=== PATIENT | female | born 1935 | race Caucasian/White ===

== ENCOUNTER → 2016-10-11 | Outpatient (CLI) | payer MEDICARE, OTHER ==
[~2016-10-11] MED LIST: ACLI400A2 INH; CHOL20002 PO; DIAZOXIDE PO; OCCUVITE; OMEG300C PO; OMEP-110 PO; POTA20TA91 PO; TRIA1CAP PO; albuterol mdi
== END | disposition home or self-care (01) ==
LOC: CFH 10:11
PROVIDERS: ATTEND Nurse Practitioner
DX: J43.2 Centrilobular emphysema (principal); J84.10 Pulmonary fibrosis, unspecified; R91.1 Solitary pulmonary nodule; I70.0 Atherosclerosis of aorta; M47.894 Other spondylosis, thoracic region
CPT/HCPCS: 71250

== ENCOUNTER → 2017-10-31 | Outpatient (CLI) | payer MEDICARE, OTHER | END | disposition home or self-care (01) | LOC: CFH 11:09 | PROVIDERS: ATTEND Internal Medicine | DX: J43.2 Centrilobular emphysema (principal); J84.10 Pulmonary fibrosis, unspecified; J98.11 Atelectasis; R91.1 Solitary pulmonary nodule | CPT/HCPCS: 71250 ==

== ENCOUNTER → 2018-07-12 | Outpatient (CLI) | payer MEDICARE, OTHER ==
[~2018-07-12] MED LIST changes: -CHOL20002 PO; +CHOL200052 PO
== END | disposition home or self-care (01) ==
LOC: CFH 09:24
PROVIDERS: ATTEND Nurse Practitioner
DX: J43.9 Emphysema, unspecified (principal); R91.1 Solitary pulmonary nodule; J98.4 Other disorders of lung; K44.9 Diaphragmatic hernia without obstruction or gangrene; I70.0 Atherosclerosis of aorta; I25.10 Atherosclerotic heart disease of native coronary artery without angina pectoris
CPT/HCPCS: 71250

== ENCOUNTER → 2019-06-12 | Outpatient (CLI) | payer MEDICARE, OTHER ==
[~2019-06-12] MED LIST changes: -ACLI400A2 INH; +ACLI400A3 INH; +CALCIUM; +CRANBERRY; +LEVO25TA4 PO; +PREVACID; +TRILIGY INH
== END | disposition home or self-care (01) ==
LOC: RAD 11:54
PROVIDERS: ATTEND Internal Medicine
DX: J43.8 Other emphysema (principal); R91.1 Solitary pulmonary nodule
CPT/HCPCS: 71250

== ENCOUNTER → 2020-02-26 | Outpatient (CLI) | payer MEDICARE, OTHER | END | disposition home or self-care (01) | LOC: CFH 09:49 | PROVIDERS: ATTEND Internal Medicine | DX: J43.2 Centrilobular emphysema (principal); R91.8 Other nonspecific abnormal finding of lung field; J98.4 Other disorders of lung | CPT/HCPCS: 71250 ==

== ENCOUNTER 2020-05-27 15:21 | Emergency (ER) | payer MEDICARE, OTHER ==
[2020-05-27 16:40] LABS: MEAN CORPUSCULAR HGB CONC 32.5 g/dL (32.4-35.8); MEAN PLATELET VOLUME 8.3 fL (7.4-10.4); PLATELET COUNT 289 x10^3/uL (130-400); RED BLOOD COUNT 4.08 x10^6/uL (3.82-5.3); RED CELL DISTRIBUTION WIDTH 12.8 % (9.6-15.2)
[2020-05-27 16:48] LABS: ANION GAP 5 mmol/L (5-15); CALCIUM 8.9 mg/dL (8.5-10.1); CHLORIDE 110 mmol/L (98-107); CREATININE 0.83 mg/dL (0.55-1.02); MD YES
[2020-05-27 16:49] LABS: ALBUMIN 3.3 g/dL (3.4-5.0)
--- NOTE | 2020-05-27 17:29 | NUR ---
Pt sitting up in bed, 5L 02 on, pt reports they wear 5L oxygen at home at all times, Pt's breathing labored, able to talk and have conversation.
[2020-05-27 17:50] LABS: BAND#(MANUAL) 0.27 x10^3/uL; BANDS%(MANUAL) 2 % (0-7); EOS#(MANUAL) 5.44 x10^3/uL (0.0-0.4); EOS% (MANUAL) 40 % (1-7); LYMPH#(MANUAL) 2.18 x10^3/uL (1-3.4); LYMPHS% (MANUAL) 16 % (22-44); MONOS#(MANUAL) 0.14 x10^3/uL (0.3-2.7); MONOS% (MANUAL) 1 % (2-9); SEG#(MANUAL) 5.58 x10^3/uL (1.8-6.8); SEGS% (MANUAL) 41 % (42-75)
[2020-05-27 17:51] LABS: <RBC MORPHOLOGY> NORMAL
[2020-05-27 17:52] LABS: <PLATELET ESTIMATE> ADEQUATE
[2020-05-27] MEDS ORDERED: CEFTRIAXONE 1,000 MG IM ONE (19:00)
[2020-05-27] MEDS ORDERED: CEFTRIAXONE 1,000 MG ONE (19:10)
[2020-05-27 19:28] VITALS: BP 158/69
== END 2020-05-27 19:41 | disposition home or self-care (01) ==
LOC: ED 19:35
DX: J06.9 Acute upper respiratory infection, unspecified (principal); B34.9 Viral infection, unspecified; R06.00 Dyspnea, unspecified; R05 Cough; R50.9 Fever, unspecified; R00.0 Tachycardia, unspecified; I10 Essential (primary) hypertension; J44.9 Chronic obstructive pulmonary disease, unspecified
CPT/HCPCS: 36415; 71045; 80048; 82040; 85025; 93005; 96372; 99285; J0696